=== PATIENT | male | born 1970 | race Caucasian/White ===

== ENCOUNTER → 2023-04-30 10:55 | Outpatient (REF) | payer BC, SELFPAY ==
--- NOTE | 2023-04-30 13:04 | EEG.RPT ---
Electroencephalogram Report
Recording
Date of EE04/30/23
Type of EEG: Routine
Length of EEG recordin minutes
Done with Video Recording: Yes
Patient Status: Outpatient
Recording Conditions: Awake, Drowsy and Asleep
Hyperventilation Performed: Yes
Photic Stimulation Performed: Yes
Report
GREATER THAN 1 HOUR EEG REPORT
EEG INTERPRETATION:
Unremarkable EEG for age
CLINICAL CORRELATION:
A normal EEG does not rule out a diagnosis of epilepsy.� If clinical suspicion for seizure persists, a prolonged recording may be warranted.
Clinical correlation is advised.
METHODS:
A 21 channel digitized electroencephalogram (EEG) was performed in the [facility]. The 10/20 international system of electrode placement was used with ECG and lateral/vertical eye movements recorded. Persyst quantitative EEG
analysis was performed.
ELECTROENCEPHALOGRAPHER IMPRESSION(S):
Quality of study
Good
Background
Unremarkable, well maintained, medium amplitude alpha-frequency and unremarkable anterior-posterior voltage gradient
With eye opening the background activity changed to a low voltage mixture of frequencies.
Sleep
Drowsiness present
Stage 2 sleep recorded
Hyperventilation
Did not activate the record
Photic Stimulation
Did not activate the record
ECG
Normal sinus rhythm
== END ==
LOC: RCS 10:55
PROVIDERS: ATTENDING PHYSICIAN Psychiatry & Neurology Neurology; FAMILY PHYSICIAN Family Medicine
DX: R41.3 Other amnesia (principal); F10.11 Alcohol abuse, in remission
CPT/HCPCS: 95813

== ENCOUNTER → 2023-05-12 19:44 | Outpatient (REF) | payer BC, SELFPAY | LOC: MRI 19:44 | PROVIDERS: ATTENDING PHYSICIAN Psychiatry & Neurology Neurology; FAMILY PHYSICIAN Family Medicine | DX: R41.3 Other amnesia (principal); F10.11 Alcohol abuse, in remission | CPT/HCPCS: 70553; A9575 ==

== ENCOUNTER → 2023-08-27 07:32 | Outpatient (REF) | payer BC, SELFPAY | LOC: DHCBC/DCA 07:32 | PROVIDERS: ATTENDING PHYSICIAN Internal Medicine; FAMILY PHYSICIAN Family Medicine | DX: R94.31 Abnormal electrocardiogram [ECG] [EKG] (principal) | CPT/HCPCS: 78452; 93017; A9500; J2785 ==

== ENCOUNTER → 2023-09-17 13:58 | Outpatient (REF) | payer BC, SELFPAY | LOC: RCS 13:58 | PROVIDERS: ATTENDING PHYSICIAN Internal Medicine; FAMILY PHYSICIAN Family Medicine | DX: R94.31 Abnormal electrocardiogram [ECG] [EKG] (principal) | CPT/HCPCS: 93306 ==

== ENCOUNTER → 2024-05-16 07:52 | Outpatient (REF) | payer BC, SELFPAY | LOC: WOUND 07:52 | PROVIDERS: ATTENDING PHYSICIAN Surgery; FAMILY PHYSICIAN Family Medicine | DX: L97.512 Non-pressure chronic ulcer of other part of right foot with fat layer exposed (principal); L97.522 Non-pressure chronic ulcer of other part of left foot with fat layer exposed; E11.65 Type 2 diabetes mellitus with hyperglycemia; E11.43 Type 2 diabetes mellitus with diabetic autonomic (poly)neuropathy | CPT/HCPCS: 99213 ==

== ENCOUNTER 2024-07-23 08:45 | Emergency (ER) | payer BC, SELFPAY ==
[2024-07-23 08:47] VITALS: BP 138/91
--- NOTE | 2024-07-23 09:17 | ED.GENMED ---
History of Present Illness
General
Chief Complaint: Abdominal Symptoms
Source: patient
Exam Limitations: none
Time Seen by Provider: 07/23/24 09:09
History of Present Illness
History of Present Illness:
See MDM
Past History
Past History
ED Past Medical History: GERD, HTN and NIDDM
ED Past Surgical History: Cholecystectomy and Other (Gastric bypass, lasik eye surgery)
Social History
Tobacco: Non-smoker
Alcohol: None
Personal:
Living: with family
Employment: Employed
Family History
Family History: Negative Early CAD
Phy Exam
Physical Exam
Physical Exam:
See MDM
Course
Orders/Labs/Results
Orders:
Orders
07/23/24 09:13
Urinalysis Reflex To Culture Urgent
Date Specimen was Collected: 07/23/24
Time Specimen was Collected: 09:11
Urine Microscopic Reflex Cult Urgent
07/23/24 09:16
CT Abd/pel W Iv And Oral Contr Urgent
Comment: hx gastric bypass
Reason For Exam: mid abd pain, nausea
0.9% Sodium Chloride 1000 ml [Nss] 1,000 ml IV BOLUS
Iohexol [Omnipaque] See Protocol PO NOW STA
Ketorolac [Toradol] 30 mg IV NOW STA
Ondansetron Injectable [Zofran] 4 mg IV NOW STA
07/23/24 09:29
Complete Blood Count/With Diff Urgent
Comprehensive Metabolic Panel Urgent
Lipase Urgent
07/23/24 09:57
HYDROmorphone [Dilaudid] 0.5 mg .ROUTE .STK-MED ONE
07/23/24 10:00
HYDROmorphone [Dilaudid] 0.5 mg IV NOW STA
07/23/24 10:13
HYDROmorphone [Dilaudid] 1 mg IV NOW STA
07/23/24 10:14
HYDROmorphone [Dilaudid] 1 mg .ROUTE .STK-MED ONE
07/23/24 10:46
HYDROmorphone [Dilaudid] 1 mg IV NOW STA
07/23/24 13:05
HYDROmorphone [Dilaudid] 1 mg IV NOW STA
Abnormal Lab Results
07/23/24 07/23/24
09:13 09:29
MCH 31.6 H pg
(27.0-31.0)
MPV 10.6 H fL
(7.4-10.4)
Urine Albumin (Reflex) 2+ A
(Neg - Trace)
07/23/24 09:29
07/23/24 09:29
Vital Signs
Initial and Last Documented VS:
Initial Vital Signs
Temp Pulse Resp BP Pulse Ox
97.5 F 72 16 138/91 100
07/23/24 08:47 07/23/24 08:47 07/23/24 08:47 07/23/24 08:47 07/23/24 08:47
Last Documented Vital Signs
Temp Pulse Resp BP Pulse Ox
97.5 F 67 15 128/92 99
07/23/24 08:47 07/23/24 13:00 07/23/24 13:00 07/23/24 13:00 07/23/24 10:44
MDM/Problems Addressed
Differential Diagnosis Includes:
HPI and MDM Narrative:
54-year-old male presenting for evaluation of abdominal pain. Patient states it started with left abdominal pain yesterday. Then started to radiate to his right abdomen. He now has bilateral flank pain. He denies any urinary symptoms or fevers.
He denies prior history of kidney stones. On exam, he does have tenderness reproduced in the mid abdomen. He tried Tylenol and Motrin overnight with no relief. Given his prior history of gastric bypass, will obtain CT with IV and oral contrast.
Will provide Zofran, fluids and Toradol
Physical exam
General: Mildly uncomfortable
HEENT: protecting airway
Neck: appears supple
CV: No evidence of cyanosis
Resp: No accessory muscle use
Abd: Non-distended. Tenderness to palpation of mid abdomen. No rebound
Extremities: No deformities
Neuro: alert
Psych: Normal affect
Skin: Intact
Problems Addressed including Acute and Chronic Conditions affecting care:
1. Abdominal pain
Acuity: acute
Prognosis: stable
Details: Given his prior history of gastric bypass, will obtain CT
Updates
Patient requiring multiple doses of IV pain medicine. Radiology called indicating concern for jejunal jejunal intussusception. Case discussed with general surgery who indicated this could be incidental and does not normally require intervention
unless there is persistent symptoms or obstruction or ischemia. Based on this, patient would require bariatric surgeon evaluation. He states his surgery was done 20+ years ago in [place]. I did suggest transfer to another facility that has
bariatric capabilities. Patient acknowledged my concern but states he is feeling better and wants to go home. Will give short course of pain medicine but discussed the importance of bariatric follow-up
Differential Diagnosis (but not limited to): Gastritis, internal hernia, kidney stone, pancreatitis
Testing considered: CT without contrast
Drug therapy (if applicable): OTC meds, please see d/c instruction regarding Rx drugs
Amount and/or Complexity of Data Reviewed
Clinical info obtained from: Patient
External data reviewed: N/A
Labs I independently reviewed (but not limited to): White blood cell count normal
Radiology: The CT scan was personally and independently reviewed. In addition, official CT report reviewed.
Pulse Ox: not hypoxic
EKG independently reviewed: N/A
Farm Appraiser: N/A
Critical Care: N/A
Risk of Complication:
Social Determinants of health: Good social support
Discussed with other providers: General surgeon, radiologist
Escalation of Care includes Admit/Obs: After being observed in the Emergency Department, pt stable for discharge.
Occasional wrong word or 'sound a like' substitutions may have occurred due to the inherent limitations of voice recognition software. Read the chart carefully and recognize, using context, where substitutions have occurred.
*Critical Care Note
Total Time (30-74mins, 75-104mins- exclusive of procedures): Not Applicable
ED Attending Note
-
Portions of this chart may have been created with voice recognition software.� Occasional wrong word or��sound alike� substitutions may have occurred due to the inherent limitations of voice recognition software.
Discharge Plan
Departure
Patient Disposition: Home (Routine Discharge)
Date of Disposition: 07/23/24
Time of Disposition: 13:36
Patient with high blood pressure during this ER visit?: No
Discharge Problem:
Intussusception
Prescriptions:
New
oxycodone 5 mg tablet
5 mg PO Q8H PRN (Reason: Pain) Qty: 14 0RF
No Action
sertraline 100 mg Tablet
100 mg PO BID
buspirone 10 mg Tablet
10 mg PO BID
rosuvastatin 5 mg Tablet
5 mg PO DAILY
Mounjaro 15 mg/0.5 mL Pen Injector
15 mg SC QWEEK
Multivitamin Bariatric Iron Fr
1 tab PO DAILY
Referrals:
NONE,* [Family Provider] -
Activity Restrictions/Additional Instructions:
Please return for any worsening symptoms.
You may return at any time if you have further concerns.
Please follow up with your doctor at the first available appointment, preferably this week.
You need to follow-up with the bariatric surgeon.
You were given a prescription for narcotics. If you require this pain medicine, please take a daily [id number] stool softener to avoid constipation.
Thank you for choosing [facility].
Interventions
Interventions:
*Risk Screen - Suicide Last Done: 07/23/24 08:49
*General Assessment Last Done: 07/23/24 09:12
*Neglect/Abuse Screening Last Done: 07/23/24 08:49
*ED- Fall Risk Assessment Last Done: 07/23/24 09:12
*ED COVID-19 Vaccine History Last Done: 07/23/24 09:12
ZD-Krekip-Pvcigaobfs Assessment Last Done: 07/23/24 09:33
Discharge Date and Time
Print Language: ANDORRAN
[2024-07-23] MEDS: OMNIPAQUE 50 ML PO (09:26)
[2024-07-23] MEDS: TORADOL 30 MG IV (09:26)
[2024-07-23] MEDS: NSS 1000 IV (09:26)
[2024-07-23] MEDS: ZOFRAN 4 MG IV (09:27)
[2024-07-23 09:33] VITALS: BMI 31.1
[2024-07-23 09:41] LABS: Urine Albumin 2+ (Neg - Trace); Urine Bilirubin Negative (Negative); Urine Character Clear (Clear); Urine Color Yellow; Urine Glucose Negative (Negative); Urine Ketone Negative (Negative); Urine Leukocyte Negative (Negative); Urine Nitrite Negative (Negative); Urine Occult Blood Negative (Negative); Urine Specific Gravity 1.025 (<1.030); Urine Urobilinogen Negative (Neg - 1+)
[2024-07-23 09:41] LABS: % Basophils 0.6 % (0-2); % Eosinophils 2.8 % (0-6); % Immature Granulocytes 0.3 % (0-0.5); % Lymphocytes 29.5 % (20.5-51.1); % Neutrophils 60.8 % (42.2-75.2); Absolute Basophils 0.1 10^3/uL (0-0.2); Absolute Eosinophils 0.3 10^3/uL (0-0.7); Absolute Lymphocytes 2.9 10^3/uL (1.2-3.4); Absolute Monocytes 0.6 10^3/uL (0.1-0.6); Absolute Neutrophils 5.9 10^3/uL (1.4-6.5); Hematocrit 44.3 % (39.0-52.0); Hemoglobin 15.3 g/dL (13.0-18.0); Mean Corp Hgb Conc. 34.5 g/dL (33.0-37.0); Mean Corpuscular Hgb 31.6 pg (27.0-31.0); Mean Corpuscular Volume 91.5 fL (80.0-94.0); Mean Platelet Volume 10.6 fL (7.4-10.4); Nucleated Red Blood Cells % 0 % (-); Platelet Count 268 10^3/uL (130-400); Red Blood Cell Count 4.84 10^6/uL (4.70-6.10); Red Cell Dist. Width 12.8 % (11.5-14.5); White Blood Cell Count 9.7 10^3/uL (4.8-10.8)
[2024-07-23 09:47] LABS: Urine Calcium Oxalate Crystals Present; Urine Red Blood Cell 0-2 /HPF (0-2); Urine White Cell 0-2 /HPF (0-5)
[2024-07-23 09:53] LABS: ALT (SGPT) 34 U/L (0-50); AST (SGOT) 26 U/L (17-59); Albumin 4.3 g/dl (3.5-5.0); Alkaline Phosphatase 46 U/L (38-126); Blood Urea Nitrogen 14 mg/dl (9-20); Calcium 9.7 mg/dl (8.4-10.2); Carbon Dioxide 28 mmol/L (22-30); Chloride 107 mmol/L (98-107); Estimated Creatinine Clearance 109 ml/min; Glucose 94 mg/dl (70-99); Lipase 88 U/L (23-300); Potassium 4.1 mmol/L (3.5-5.1); Sodium 143 mmol/L (135-145); Total Bilirubin 0.6 mg/dl (0.2-1.3); Total Protein 6.6 g/dl (6.3-8.2); eGFR > 60.00
[2024-07-23 09:54] VITALS: BP 141/104
[2024-07-23] MEDS: DILAUDID 0.5 MG IV (10:00)
[2024-07-23] MEDS: DILAUDID 1 MG IV ×3 (10:16→13:09)
[2024-07-23 10:44] VITALS: BP 144/110
[2024-07-23 11:46] VITALS: BP 144/101
[2024-07-23 13:00] VITALS: BP 128/92
[2024-07-23 13:53] VITALS: BP 125/84
== END 2024-07-23 13:55 | disposition home or self-care (01) ==
LOC: EMR 08:45
PROVIDERS: EMERGENCY PHYSICIAN Student in an Organized Health Care Education/Training Program
DX: K56.1 Intussusception (principal); I10 Essential (primary) hypertension; E11.9 Type 2 diabetes mellitus without complications; Z90.49 Acquired absence of other specified parts of digestive tract; Z98.84 Bariatric surgery status
CPT/HCPCS: 96374; 96375; 96376; 96361; 99284; 74177; 80053; 81003; 81015; 83690; 85025; Q9967